=== PATIENT | male | born 1965 | race Caucasian/White ===

== ENCOUNTER 2016-10-01 15:41 | Emergency (ER) | payer OTHER ==
[2016-10-01 16:18] VITALS: BP 121/76
--- NOTE | 2016-10-01 16:22 | Emergency Department Report ---
Entered by ATIF CERDA, acting as scribe for TATIANA PEREZ NP. Chief Complaint: Chest Pain Stated Complaint: CHEST PAIN/NUMBNESS Time Seen by Provider: 10/01/16 16:11 - HPI History of Present Illness: 51 y/o male with high cholesterol, presents with 3/10 left sided chest pain that started yesterday and has improved since onset. Pt reports he started new medicine yesterday. Additional Sx include WILLIS - ROS Review of Systems: +WILLIS +numbness +chest pain - Exam Vital Signs: Vital Signs 10/01/16 16:14 Temperature 98.7 F Pulse Rate 73 Respiratory 18 Rate Blood Pressure 121/76 O2 Sat by Pulse 100 Oximetry Physical Exam: Cardiovascular: normal rate, normal rhythm, normal heart sounds in s1 and s2. No murmurs, rubs or gallops. MSE screening note: Focused history and physical exam performed. Due to findings the following was ordered: ED Disposition for MSE Condition: Stable This documentation as recorded by the scribe,ATIF CERDA,accurately reflects the service I personally performed and the decisions made by ANA bhakta TRACY M, NP.
[2016-10-01 16:39] LABS: Basophils % (Auto) 0.7 % (0.0-1.8); Eosinophils % (Auto) 0.8 % (0.0-4.3); Hematocrit 42.5 % (35.5-45.6); Hemoglobin 14.6 gm/dl (11.8-15.2); Mean Corpuscular HGB Conc 34 % (32-34); Mean Corpuscular Hemoglobin 31 pg (28-32); Mean Corpuscular Volume 89 fl (84-94); Platelet Count 213 K/mm3 (140-440); Red Blood Count 4.79 M/mm3 (3.65-5.03); Red Cell Distribution Width 12.8 % (13.2-15.2); White Blood Count 5.9 K/mm3 (4.5-11.0)
[2016-10-01 16:48] LABS: INR 1.09 (0.87-1.13)
[2016-10-01 16:49] LABS: Partial Thromboplastin Time 26.9 Sec. (24.2-36.6)
[2016-10-01 18:56] LABS: Alanine Aminotransferase 17 units/L (7-56); Albumin 4.6 g/dL (3.9-5); Albumin/Globulin Ratio 1.6 %; Alkaline Phosphatase 54 units/L (35-129); Anion Gap 19 mmol/L; BUN/Creatinine Ratio 15.71; Blood Urea Nitrogen 22 mg/dL (9-20); Calcium 9.4 mg/dL (8.4-10.2); Carbon Dioxide 25 mmol/L (22-30); Chloride 100.4 mmol/L (98-107); Glucose 117 mg/dL (75-100); Potassium 3.7 mmol/L (3.6-5.0); Sodium 141 mmol/L (137-145); Total Protein 7.5 g/dL (6.3-8.2)
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
== END 2016-10-02 02:15 | disposition left against medical advice (07) ==
LOC: ED 15:41
DX: R07.89 Other chest pain (principal); R51 Headache; R20.0 Anesthesia of skin; Z53.21 Procedure and treatment not carried out due to patient leaving prior to being seen by health care provider
CPT/HCPCS: 36415; 71020; 80053; 82550; 84484; 85025; 85610; 85730; 93005; 93010

== ENCOUNTER 2018-05-30 09:57 | Outpatient (CLI) | payer OTHER ==
[2018-05-30 12:08] LABS: C-Reactive Protein 0.2 mg/dL (0.00-1.30); Chol/HDL Ratio 4.26 %
== END 2018-05-30 09:58 | disposition home or self-care (01) ==
LOC: LAB 09:57
PROVIDERS: ATTEND Internal Medicine
DX: Z00.01 Encounter for general adult medical examination with abnormal findings (principal); I10 Essential (primary) hypertension; E11.9 Type 2 diabetes mellitus without complications; E78.2 Mixed hyperlipidemia; Z90.49 Acquired absence of other specified parts of digestive tract
CPT/HCPCS: 36415; 80061; 85652; 86140

== ENCOUNTER 2019-09-08 11:29 | Outpatient (CLI) | payer OTHER ==
[2019-09-08 12:06] LABS: Bilirubin,Urine NEG (Negative); Blood,Urine NEG (Negative); Color,Urine Yellow (Yellow); Mucus,Urine FEW /HPF; Protein,Urine <15 mg/dL mg/dL (Negative); Urobilinogen,Urine < 2.0 mg/dL (<2.0); WBC,Urine < 1.0 /HPF (0.0-6.0)
[2019-09-08 12:28] LABS: Chol/HDL Ratio 4.78 %; HDL Cholesterol 37 mg/dL (40-59); LDL Cholesterol,Direct TNR mg/dL (50-130)
== END 2019-09-08 11:30 | disposition home or self-care (01) ==
LOC: LAB 11:29
PROVIDERS: ATTEND Internal Medicine
DX: N39.0 Urinary tract infection, site not specified (principal); E78.5 Hyperlipidemia, unspecified
CPT/HCPCS: 36415; 80061; 81001; 87086

== ENCOUNTER 2021-03-30 11:34 | Outpatient (CLI) | payer OTHER ==
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
== END 2021-03-30 11:35 | disposition home or self-care (01) ==
LOC: XRAY 11:34
PROVIDERS: ATTEND Internal Medicine
DX: R22.2 Localized swelling, mass and lump, trunk (principal); S12.9XXD Fracture of neck, unspecified, subsequent encounter; X58.XXXD Exposure to other specified factors, subsequent encounter
CPT/HCPCS: 71046